=== PATIENT | female | born 1945 | race Hispanic/Latino ===

== ENCOUNTER 2017-07-22 18:44 | Emergency (ER) | payer OTHER, MEDICARE ==
[2017-07-22] MEDS ORDERED: BENZONATATE 100 MG CAPSULE PO ONE (19:37)
[2017-07-22] MEDS ORDERED: ONDANSETRON ODT 4 MG TAB ONE (19:37)
[2017-07-22] MEDS ORDERED: IPRATROPIUM/ALBUTEROL SULFATE 3 ML SOLUTION IH ONE (19:38)
== END 2017-07-22 21:02 | disposition home or self-care (01) ==
LOC: EDH 18:44
DX: J20.9 Acute bronchitis, unspecified (principal); E11.9 Type 2 diabetes mellitus without complications; I10 Essential (primary) hypertension; E78.5 Hyperlipidemia, unspecified; Z90.49 Acquired absence of other specified parts of digestive tract; Z90.710 Acquired absence of both cervix and uterus; Z98.890 Other specified postprocedural states; Z88.5 Allergy status to narcotic agent
CPT/HCPCS: 71045; 87880; 93005; 94640

== ENCOUNTER 2017-11-28 03:22 | Emergency (ER) | payer OTHER, MEDICARE ==
[2017-11-28 03:35] LABS: BASOPHILS % (AUTO) 0.5 % (0.0-5.0); EOSINOPHILS % (AUTO) 3.7 % (0.0-8.0); MEAN CORPUSCULAR HEMOGLOBIN 29.1 pg (27.0-33.0); MEAN CORPUSCULAR HGB CONC 32.8 g/dL (32.0-36.0); MEAN CORPUSCULAR VOLUME 88.6 fL (79-99); MONOCYTES % (AUTO) 7.4 % (3.0-13.0); NEUTROPHILS % (AUTO) 64.4 % (40.0-77.0); PLATELET COUNT (AUTO) 128 K/uL (130-400); RED BLOOD CELL COUNT(AUTO) 4.63 MIL/uL (4.00-5.50); RED CELL DISTRIBUTION WIDTH 14.3 % (11.0-15.5); WHITE BLOOD COUNT (AUTO) 10.5 K/uL (4.8-10.8)
[2017-11-28 03:44] LABS: APPEARANCE,URINE Clear (CLEAR); BILIRUBIN,URINE Negative (NEGATIVE); COLOR,URINE Yellow (YELLOW); GLUCOSE, URINE (UA) Negative (NEGATIVE); KETONES,URINE Negative (NEGATIVE); LEUKOCYTE ESTERASE ,URINE Trace (NEGATIVE); NITRATE,URINE Negative (NEGATIVE); OCCULT BLOOD,URINE Trace (NEGATIVE); PH,URINE 7.5 (5.0-8.0); PROTEIN,URINE Negative (NEGATIVE); UROBILINOGEN,URINE 0.2 mg/dL (0.2-1.0)
[2017-11-28 03:45] LABS: CREATININE 0.7 mg/dL (0.5-1.5); POTASSIUM 3.8 mmol/L (3.5-5.1)
[2017-11-28 03:47] LABS: INR 0.98 (0.85-1.15); PROTHROMBIN TIME 10.3 SEC (9.6-11.6)
[2017-11-28 03:58] LABS: ALBUMIN 3.5 g/dL (3.5-5.0); BILIRUBIN,TOTAL 0.4 mg/dL (0.2-1.0); TOTAL PROTEIN, SERUM 7.8 g/dL (6.0-8.3)
[2017-11-28 03:59] LABS: BACTERIA,URINE Few /HPF (None Seen); MUCUS,URINE Moderate LPF (None Seen); RBC,URINE 0-1 /HPF (0-1); SQUAMOUS EPITHELIAL CELL,UR Few /HPF (0-2)
[2017-11-28] MEDS ORDERED: LIDOCAINE HCL 2% VISCOUS 15 ML UDCUP ONE (04:14)
[2017-11-28] MEDS ORDERED: MAG HYDROX/AL HYDROX/SIMETH ES 30 ML SUSP UDCUP ONE (04:14)
[2017-11-28] MEDS ORDERED: ONDANSETRON HCL 4 MG/2 ML VIAL ONE (04:14)
[2017-11-28] MEDS ORDERED: SUCRALFATE 1 GM TABLET ONE (06:49)
== END 2017-11-28 07:06 | disposition home or self-care (01) ==
LOC: EDH 03:22
DX: R10.13 Epigastric pain (principal); E11.9 Type 2 diabetes mellitus without complications; E78.5 Hyperlipidemia, unspecified; I10 Essential (primary) hypertension; Z90.49 Acquired absence of other specified parts of digestive tract; Z98.890 Other specified postprocedural states; Z90.710 Acquired absence of both cervix and uterus; Z88.6 Allergy status to analgesic agent
CPT/HCPCS: 36415; 71045; 80053; 81001; 82550; 83690; 83874; 84484 ×2; 85025; 85610; 85730; 93005 ×2; 94761; 96374; 99285; J2405

== ENCOUNTER 2018-01-09 08:19 | Observation (INO) | payer OTHER, MEDICARE ==
[2018-01-06 10:00] VITALS: BP 139/61
[2018-01-06 10:02] LABS: BASOPHILS % (AUTO) 0.7 % (0.0-5.0); EOSINOPHILS % (AUTO) 2.6 % (0.0-8.0); MEAN CORPUSCULAR VOLUME 88.3 fL (79-99); MONOCYTES % (AUTO) 6.2 % (3.0-13.0); NEUTROPHILS % (AUTO) 70.5 % (40.0-77.0); NUCLEATED RED BLOOD CELLS 0.1 % (0.0-0.19); PLATELET COUNT (AUTO) 118 K/uL (130-400); RED BLOOD CELL COUNT(AUTO) 4.65 MIL/uL (4.00-5.50); RED CELL DISTRIBUTION WIDTH 14.3 % (11.0-15.5); WHITE BLOOD COUNT (AUTO) 8.9 K/uL (4.8-10.8)
[2018-01-06 10:11] LABS: CREATININE 0.8 mg/dL (0.5-1.5); POTASSIUM 4.2 mmol/L (3.5-5.1)
[2018-01-06 10:14] LABS: INR 0.99 (0.85-1.15); PARTIAL THROMBOPLASTIN TIME 33.8 SEC (26.3-35.5); PROTHROMBIN TIME 10.4 SEC (9.6-11.6)
[2018-01-06 11:06] LABS: APPEARANCE,URINE Clear (CLEAR); BILIRUBIN,URINE Negative (NEGATIVE); COLOR,URINE Yellow (YELLOW); GLUCOSE, URINE (UA) Negative (NEGATIVE); KETONES,URINE Negative (NEGATIVE); LEUKOCYTE ESTERASE ,URINE Trace (NEGATIVE); NITRATE,URINE Negative (NEGATIVE); OCCULT BLOOD,URINE Negative (NEGATIVE); PH,URINE 6.5 (5.0-8.0); PROTEIN,URINE Negative (NEGATIVE); UROBILINOGEN,URINE 0.2 mg/dL (0.2-1.0)
[2018-01-06 11:21] LABS: BACTERIA,URINE Rare /HPF (None Seen); RBC,URINE None Seen /HPF (0-1); SQUAMOUS EPITHELIAL CELL,UR Rare /HPF (0-2); WBC,URINE 0-1 /HPF (0-1)
[2018-01-09] VITALS (21 sets, daily range): BP systolic 78–146; BP diastolic 40–82
[~2018-01-09] VITALS: Ht 157.5 cm; Wt 86.2 kg
[~2018-01-09 08:19] MED LIST: AEC81 PO; CEFAZOLIN SODIUM 1 GM VIAL IVP SCH; FOLIC ACID PO; LISI-617 PO; METF750T PO; SIMV40TA5 PO; SITA100T12 PO; VITAMIN B PO
[2018-01-09] MEDS ORDERED: SODIUM CHLORIDE 0.9% 1000ML 1,000 ML IV ONE (08:39)
[2018-01-09] MEDS ORDERED: CELECOXIB 200 MG CAP ONE (09:54)
[2018-01-09] MEDS ORDERED: OXYCODONE HCL 10 MG TAB.SR.12H PO ONE (09:55)
[2018-01-09] MEDS ORDERED: KETOROLAC TROMETHAMINE 15MG/ML ONE (09:56)
[2018-01-09] MEDS ORDERED: ACETAMINOPHEN EXTRA STRENGTH 500 MG TABLET ONE (09:56)
[2018-01-09] MEDS ORDERED: TRANEXAMIC ACID 1000MG/10ML IV ONE ×2 (10:09→10:41)
[2018-01-09] MEDS ORDERED: CEFAZOLIN SODIUM 1 GM VIAL ONE ×2 (10:09→10:41)
[2018-01-09] MEDS ORDERED: BUPIVACAINE/EPI/PF 0.25% 30ML VIAL IJ ONE (10:09)
[2018-01-09] MEDS ORDERED: LIDOCAINE PF 2% 5ML ABBOJECT ONE (10:31)
[2018-01-09] MEDS ORDERED: PROPOFOL 10 MG/ML 20ML VIAL IV ONE (10:32)
[2018-01-09] MEDS ORDERED: FENTANYL CITRATE PF 50 MCG/1 ML 2ML VIAL ONE ×3 (10:32→13:08)
[2018-01-09] MEDS ORDERED: ONDANSETRON HCL 4 MG/2 ML VIAL ONE (10:32)
[2018-01-09] MEDS ORDERED: MIDAZOLAM HCL 1 MG/ML 2ML VIAL ONE (10:32)
[2018-01-09] MEDS ORDERED: ROCURONIUM 10MG/1ML SYR 10 MG/ML ML ONE ×2 (10:32→12:04)
[2018-01-09] MEDS ORDERED: DEXAMETHASONE SOD PHOSPHATE 10MG/ML 1ML VIAL ONE (10:32)
[2018-01-09] MEDS ORDERED: GLYCOPYRROLATE 1 MG/5 ML SYRINGE ONE (10:32)
[2018-01-09] MEDS ORDERED: NEOSTIGMINE 5MG/5ML SYR IV ONE (10:32)
[2018-01-09] MEDS ORDERED: ROPIVACAINE 0.5% 5MG/ML 30ML IJ ONE (10:39)
[2018-01-09] MEDS ORDERED: SUCCINYLCHOLINE CHLORIDE 20 MG/ML 10 ML VIAL ONE (12:04)
[2018-01-09] MEDS ORDERED: POTASSIUM CHLORIDE 20 MEQ ERTAB PO PRN (13:00)
[2018-01-09] MEDS ORDERED: LIDOCAINE HCL-MPF 1% 2ML VIAL IVP PRN (13:00)
[2018-01-09] MEDS ORDERED: TEMAZEPAM 15 MG CAPSULE PO PRN (13:00)
[2018-01-09] MEDS ORDERED: POTASSIUM CHLORIDE 10% ELIXIR 20 MEQ/15 ML UDCUP PO PRN (13:00)
[2018-01-09] MEDS: ACETAMINOPHEN EXTRA STRENGTH 500 MG TABLET PO SCH ×2 (13:00→21:27)
[2018-01-09] MEDS ORDERED: POTASSIUM CHLORIDE 20MEQ/100ML 100 ML IV PRN (13:00)
[2018-01-09] MEDS ORDERED: OXYCODONE HCL 5 MG TAB PO PRN (13:00)
[2018-01-09] MEDS ORDERED: DiphenhydrAMINE HCL 50 MG/ML VIAL IVP PRN (13:00)
[2018-01-09] MEDS ORDERED: TRAMADOL HCL 50 MG TABLET PO PRN (13:00)
[2018-01-09] MEDS ORDERED: CALCIUM CARBONATE 500 MG TABLET PO PRN (13:00)
[2018-01-09] MEDS ORDERED: FERROUS FUMARATE 324 MG TABLET PO PRN (13:00)
[2018-01-09] MEDS ORDERED: KETOROLAC TROMETHAMINE 15MG/ML IV PRN (13:00)
[2018-01-09] MEDS: SODIUM CHLORIDE 0.9% 1000ML 1,000 ML IV SCH ×2 (15:06→23:00)
[2018-01-09] MEDS: ONDANSETRON HCL 4 MG/2 ML VIAL IVP PRN (16:35)
[2018-01-09] MEDS: INSULIN HUMULIN R 100 UNIT/ML 3ML SQ SCH ×2 (16:41→21:00)
[2018-01-09] MEDS: METFORMIN HCL 500 MG TABLET PO SCH (16:42)
[2018-01-09] MEDS: CEFAZOLIN SODIUM 1 GM VIAL IVP SCH (18:10)
[2018-01-09] MEDS ORDERED: SIMVASTATIN 20 MG TABLET PO SCH (21:00)
[2018-01-09] MEDS: FAMOTIDINE 20MG TAB 20 MG TAB PO SCH (21:26)
[2018-01-09] MEDS: ASPIRIN 325 MG TABLET PO SCH (21:26)
[2018-01-09] MEDS: CELECOXIB 200 MG CAP PO SCH (21:26)
[2018-01-09] MEDS: PREGABALIN 25 MG CAP PO SCH (21:26)
[2018-01-09] MEDS: OXYCODONE HCL 5 MG TAB PO PRN (21:28)
[2018-01-10 00:31] VITALS: BP 123/60
[2018-01-10] MEDS: CEFAZOLIN SODIUM 1 GM VIAL IVP SCH (00:47)
[2018-01-10 04:32] LABS: HEMATOCRIT 34.6 % (36-48); MEAN CORPUSCULAR HEMOGLOBIN 29.9 pg (27.0-33.0); MEAN CORPUSCULAR HGB CONC 33.9 g/dL (32.0-36.0); MEAN CORPUSCULAR VOLUME 88.2 fL (79-99); PLATELET COUNT (AUTO) 123 K/uL (130-400); RED BLOOD CELL COUNT(AUTO) 3.92 MIL/uL (4.00-5.50); RED CELL DISTRIBUTION WIDTH 14.2 % (11.0-15.5); WHITE BLOOD COUNT (AUTO) 15.4 K/uL (4.8-10.8)
[2018-01-10] MEDS: ACETAMINOPHEN EXTRA STRENGTH 500 MG TABLET PO SCH ×2 (04:35→12:41)
[2018-01-10 04:56] LABS: CREATININE 0.8 mg/dL (0.5-1.5); POTASSIUM 4.4 mmol/L (3.5-5.1)
[2018-01-10 05:48] VITALS: BP 132/75
[2018-01-10] MEDS: INSULIN HUMULIN R 100 UNIT/ML 3ML SQ SCH ×3 (05:58→16:30)
[2018-01-10] MEDS: METFORMIN HCL 500 MG TABLET PO SCH ×2 (08:00→08:45)
[2018-01-10 08:02] VITALS: BP 121/78
[2018-01-10] MEDS: CELECOXIB 200 MG CAP PO SCH (08:43)
[2018-01-10] MEDS: PREGABALIN 25 MG CAP PO SCH (08:43)
[2018-01-10] MEDS: FAMOTIDINE 20MG TAB 20 MG TAB PO SCH (08:45)
[2018-01-10] MEDS: ASPIRIN 325 MG TABLET PO SCH (08:45)
[2018-01-10] MEDS: OXYCODONE HCL 5 MG TAB PO PRN (08:47)
[2018-01-10] MEDS ORDERED: LISINOPRIL 5 MG TABLET PO SCH (09:00)
[2018-01-10] MEDS ORDERED: LINAGLIPTIN 5 MG TABLET PO SCH (09:00)
[2018-01-10] MEDS ORDERED: POLYETHYLENE GLYCOL 3350 17 GM POWD.PACK PO SCH (09:00)
[2018-01-10] MEDS: ONDANSETRON HCL 4 MG/2 ML VIAL IVP PRN (09:47)
[2018-01-10 11:27] VITALS: BP 120/56
[2018-01-10] MEDS ORDERED: ASPI-1012 PO (16:07)
[2018-01-10] MEDS ORDERED: HYDR-4457 PO (16:07)
[2018-01-10 16:34] VITALS: BP 146/68
[2018-01-12] MEDS ORDERED: BISACODYL 10 MG SUPP.RECT RC PRN (13:00)
== END 2018-01-10 18:27 | disposition home health service (06) ==
LOC: DAH 08:19 → DAHIP 08:20 → DAH 08:20 → 4AH 13:46
PROVIDERS: ADMIT Orthopaedic Surgery; ATTEND Orthopaedic Surgery
DX: M17.11 Unilateral primary osteoarthritis, right knee (principal); E11.9 Type 2 diabetes mellitus without complications; E78.5 Hyperlipidemia, unspecified; Z90.49 Acquired absence of other specified parts of digestive tract; Z90.710 Acquired absence of both cervix and uterus; Z82.49 Family history of ischemic heart disease and other diseases of the circulatory system; Z79.899 Other long term (current) drug therapy; Z79.01 Long term (current) use of anticoagulants
CPT/HCPCS: 27447; 36415 ×2; 80048 ×2; 81001; 82948 ×7; 85025; 85027; 85610; 85730; 93005; 96372; 96374; 96375; 96376; 97116 ×2; 97161; 97530 ×3; A4215; A4218; A4600; A4649 ×5; A4930; A9272; C1763; C1776; G0378 ×34; G8978; G8979; G8980; G8981; G8982; G8983; J0330; J0690 ×5; J1100; J1815; J1885; J2001; J2250; J2405 ×4; J2704; J2710; J2795; J3010 ×3; J3490 ×4; J7030 ×2

== ENCOUNTER 2019-06-09 04:39 | Emergency (ER) | payer OTHER, MEDICARE ==
[~2019-06-09 04:39] MED LIST changes: -AEC81 PO; +ASPI-1012 PO; -CEFAZOLIN SODIUM 1 GM VIAL IVP SCH; +HYDR-4457 PO; +SIMV-46 PO; -SIMV40TA5 PO
[2019-06-09 05:11] LABS: APPEARANCE,URINE Clear (CLEAR); BILIRUBIN,URINE Negative (NEGATIVE); COLOR,URINE Yellow (YELLOW); GLUCOSE, URINE (UA) Negative (NEGATIVE); KETONES,URINE Negative (NEGATIVE); LEUKOCYTE ESTERASE ,URINE Trace (NEGATIVE); NITRATE,URINE Negative (NEGATIVE); OCCULT BLOOD,URINE Negative (NEGATIVE); PH,URINE 6.5 (5.0-8.0); PROTEIN,URINE Negative (NEGATIVE)
[2019-06-09] MEDS ORDERED: SODIUM CHLORIDE 0.9% 1000ML 1,000 ML IV ONE (05:24)
[2019-06-09 05:27] LABS: BACTERIA,URINE None Seen /HPF (None Seen); RBC,URINE None Seen /HPF (0-1); SQUAMOUS EPITHELIAL CELL,UR Rare /HPF (0-2); WBC,URINE 0-1 /HPF (0-1)
[2019-06-09 05:29] LABS: BASOPHILS % (AUTO) 0.5 % (0.0-5.0); EOSINOPHILS % (AUTO) 3.2 % (0.0-8.0); LYMPHOCYTES % (AUTO) 29.9 % (21.0-51.0); MEAN CORPUSCULAR HEMOGLOBIN 28.8 pg (27.0-33.0); MEAN CORPUSCULAR VOLUME 87.3 fL (79-99); MONOCYTES % (AUTO) 7.7 % (3.0-13.0); NEUTROPHILS % (AUTO) 58.4 % (40.0-77.0); PLATELET COUNT (AUTO) 140 K/uL (130-400); RED BLOOD CELL COUNT(AUTO) 4.58 MIL/uL (4.00-5.50); RED CELL DISTRIBUTION WIDTH 13.6 % (11.0-15.5); WHITE BLOOD COUNT (AUTO) 7.8 K/uL (4.8-10.8)
[2019-06-09 05:41] LABS: CREATININE 0.8 mg/dL (0.5-1.5); POTASSIUM 3.9 mmol/L (3.5-5.1)
[2019-06-09 05:47] LABS: ALBUMIN 3.5 g/dL (3.5-5.0); BILIRUBIN,TOTAL 0.5 mg/dL (0.2-1.0); TOTAL PROTEIN, SERUM 7.5 g/dL (6.0-8.3)
[2019-06-09] MEDS ORDERED: LIDOCAINE 5% TOPICAL PATCH TP ONE (05:54)
[2019-06-09] MEDS ORDERED: KETOROLAC TROMETHAMINE 15MG/ML ONE (05:54)
[2019-06-09 05:59] LABS: INR 0.99 (0.85-1.15); PARTIAL THROMBOPLASTIN TIME 30.2 SEC (26.3-35.5); PROTHROMBIN TIME 10.7 SEC (9.6-11.6)
== END 2019-06-09 06:13 | disposition home or self-care (01) ==
LOC: EDH 04:39
DX: M54.9 Dorsalgia, unspecified (principal); M62.838 Other muscle spasm; E11.9 Type 2 diabetes mellitus without complications; E78.5 Hyperlipidemia, unspecified; I10 Essential (primary) hypertension; Z88.6 Allergy status to analgesic agent
CPT/HCPCS: 36415; 74176; 80053; 81001; 82550; 83690; 84484; 85025; 85610; 85730; 96374; 99284; J1885; J7030

== ENCOUNTER 2021-08-30 13:55 | Emergency (ER) | payer OTHER, MEDICARE ==
[~2021-08-30] VITALS: Ht 154.9 cm; Wt 75.7 kg
[~2021-08-30 13:55] MED LIST changes: -LISI-617 PO; +LISI5TAB21 PO
[2021-08-30 13:56] VITALS: BP 133/71
[2021-08-30] MEDS ORDERED: PRED20TA3 PO (14:49)
[2021-08-30] MEDS ORDERED: TRAM50TA2 PO (14:49)
[2021-08-30] MEDS ORDERED: PREDNISONE 20 MG TABLET PO ONE (15:00)
[2021-08-30] MEDS ORDERED: KETOROLAC 30MG VIAL (30MG/ML) IM ONE (15:00)
== END 2021-08-30 15:34 | disposition home or self-care (01) ==
LOC: EDH 13:55
DX: M54.41 Lumbago with sciatica, right side (principal); E11.9 Type 2 diabetes mellitus without complications; Z88.5 Allergy status to narcotic agent; Z90.49 Acquired absence of other specified parts of digestive tract; Z79.82 Long term (current) use of aspirin; Z79.84 Long term (current) use of oral hypoglycemic drugs; Z79.899 Other long term (current) drug therapy
CPT/HCPCS: 96372; 99283; J1885

== ENCOUNTER 2023-04-03 10:39 | Emergency (ER) | payer OTHER, MEDICARE ==
[~2023-04-03] VITALS: Ht 154.9 cm; Wt 71.2 kg
[~2023-04-03 10:39] MED LIST changes: +PRED20TA3 PO; +TRAM50TA2 PO
[2023-04-03 10:44] VITALS: BP 166/63; PULSE 91; RESP 16
[2023-04-03] MEDS ORDERED: DEXAMETHASONE SOD PHOSPHATE 4 MG/ML 1ML VIAL IM ONE (11:30)
[2023-04-03] MEDS ORDERED: CYCL5TAB PO (11:36)
== END 2023-04-03 12:26 | disposition home or self-care (01) ==
LOC: EDH 10:39
DX: S46.912A Strain of unspecified muscle, fascia and tendon at shoulder and upper arm level, left arm, initial encounter (principal); E11.9 Type 2 diabetes mellitus without complications; Z79.82 Long term (current) use of aspirin; Z79.84 Long term (current) use of oral hypoglycemic drugs; Z79.899 Other long term (current) drug therapy; Z88.5 Allergy status to narcotic agent; Z90.49 Acquired absence of other specified parts of digestive tract; X58.XXXA Exposure to other specified factors, initial encounter; Y93.89 Activity, other specified; Y92.89 Other specified places as the place of occurrence of the external cause; Y99.8 Other external cause status
CPT/HCPCS: 99283; 73030; 96372; J1100

== ENCOUNTER 2023-04-11 04:54 | Emergency (ER) | payer MEDICARE ==
[~2023-04-11] VITALS: Ht 154.9 cm; Wt 75.7 kg
[~2023-04-11 04:54] MED LIST changes: +CYCL5TAB PO
[2023-04-11] MEDS: FAMOTIDINE 20MG VIAL IV ONE (05:17)
[2023-04-11] MEDS: PROCHLORPERAZINE 10MG/2ML INJ IV ONE (05:18)
[2023-04-11] MEDS: 0.9%NACL 1000ML 1,000 ML IV ONE (05:19)
[2023-04-11 05:24] LABS: BASOPHILS # (AUTO) 0.03 K/uL (0.00-0.20); BASOPHILS % (AUTO) 0.3 % (0.0-5.0); EOSINOPHILS # (AUTO) 0.17 K/uL (0.00-0.70); EOSINOPHILS % (AUTO) 1.7 % (0.0-8.0); HEMATOCRIT 41.1 % (36-48); IMMATURE GRANULOCYTE ABSOLUTE 0.04 K/uL (0-1); LYMPHOCYTES # (AUTO) 1.4 K/uL (1.0-4.8); LYMPHOCYTES % (AUTO) 14.5 % (21.0-51.0); MEAN CORPUSCULAR HEMOGLOBIN 29.7 pg (27.0-33.0); MEAN CORPUSCULAR HGB CONC 34.8 g/dL (32.0-36.0); MEAN CORPUSCULAR VOLUME 85.4 fL (79-99); MONOCYTES # (AUTO) 0.7 K/uL (0.1-1.0); MONOCYTES % (AUTO) 7.2 % (3.0-13.0); NEUTROPHILS # (AUTO) 7.4 K/uL (1.8-7.7); NEUTROPHILS % (AUTO) 75.9 % (40.0-77.0); PLATELET COUNT (AUTO) 111 K/uL (130-400); RED BLOOD CELL COUNT(AUTO) 4.81 MIL/uL (4.00-5.50); RED CELL DISTRIBUTION WIDTH 13.6 % (11.0-15.5); WHITE BLOOD COUNT (AUTO) 9.7 K/uL (4.8-10.8)
[2023-04-11 05:45] LABS: ALBUMIN 3.3 g/dL (3.5-5.0); BILIRUBIN,TOTAL 0.6 mg/dL (0.2-1.0); CREATININE 0.8 mg/dL (0.5-1.5); POTASSIUM 3.8 mmol/L (3.5-5.1); TOTAL PROTEIN, SERUM 7.2 g/dL (6.0-8.3)
[2023-04-11] MEDS ORDERED: IOHEXOL-350 75 ML VIAL IV ONE (06:48)
[2023-04-11 07:35] LABS: ADD UA MICROSCOPIC YES; APPEARANCE,URINE CLEAR (CLEAR); BILIRUBIN,URINE NEGATIVE (NEGATIVE); COLOR,URINE COLORLESS (YELLOW); GLUCOSE, URINE (UA) 200 mg/dL (NEGATIVE); KETONES,URINE NEGATIVE (NEGATIVE); LEUKOCYTE ESTERASE ,URINE NEGATIVE Leu/uL (NEGATIVE); NITRATE,URINE NEGATIVE (NEGATIVE); OCCULT BLOOD,URINE NEGATIVE (NEGATIVE); PROTEIN,URINE NEGATIVE (NEGATIVE); UROBILINOGEN,URINE 0.2 mg/dL (0.2-1.0)
[2023-04-11 07:41] LABS: BACTERIA,URINE RARE /HPF (None Seen); SQUAMOUS EPITHELIAL CELL,UR RARE /HPF (0-2); WBC,URINE 0-1 /HPF (0-1)
[2023-04-11] MEDS ORDERED: ONDA4TAB10 PO (09:30)
[2023-04-11 09:38] VITALS: BP 130/60; PULSE 80; RESP 20; O2SAT 94
== END 2023-04-11 09:46 | disposition home or self-care (01) ==
LOC: EDH 04:54
DX: K52.9 Noninfective gastroenteritis and colitis, unspecified (principal); I10 Essential (primary) hypertension; E11.9 Type 2 diabetes mellitus without complications; Z79.82 Long term (current) use of aspirin; Z79.84 Long term (current) use of oral hypoglycemic drugs; Z79.899 Other long term (current) drug therapy; Z98.890 Other specified postprocedural states; Z90.710 Acquired absence of both cervix and uterus
CPT/HCPCS: 99285; 74177; 96374; 96361; 96375; 84484; 80053; 85025; 81001; 36415; J3490; J7030; J0780; Q9967

== ENCOUNTER 2023-07-15 22:40 | Emergency (ER) | payer MEDICARE ==
[~2023-07-15] VITALS: Ht 154.9 cm; Wt 77.6 kg
[~2023-07-15 22:40] MED LIST changes: +ONDA4TAB10 PO
[2023-07-16] MEDS ORDERED: CYCL15CA23 PO (00:03)
[2023-07-16] MEDS ORDERED: DICL20GE TP (00:03)
[2023-07-16 00:29] VITALS: BP 161/83; PULSE 79; RESP 18; O2SAT 100
[2023-07-16] MEDS: TRIAMCINOLONE ACETONIDE 40 MG/ML 1ML VIAL IM ONE (00:33)
[2023-07-16] MEDS: ORPHENADRINE CITRATE 30 MG/ML ML IM STA (00:34)
== END 2023-07-16 00:41 | disposition home or self-care (01) ==
LOC: EDH 22:40
DX: M77.9 Enthesopathy, unspecified (principal); E11.9 Type 2 diabetes mellitus without complications; I10 Essential (primary) hypertension; Z79.82 Long term (current) use of aspirin; Z79.84 Long term (current) use of oral hypoglycemic drugs; Z79.899 Other long term (current) drug therapy; Z88.5 Allergy status to narcotic agent; Z90.49 Acquired absence of other specified parts of digestive tract; Z90.710 Acquired absence of both cervix and uterus
CPT/HCPCS: 99285; 71045 ×2; 84484; 93005; 96372 ×2; J3301; J2360